=== PATIENT | female | born 1950 | race Caucasian/White ===

== ENCOUNTER 2016-09-30 10:42 | Emergency (ER) | payer BC, MEDICARE ==
--- NOTE | 2016-09-30 10:59 | EDM.PDOC ---
ED HPI GENERAL MEDICAL PROBLEM - General Chief Complaint: Genitourinary Problem Stated Complaint: POSSIBLE UTI Time Seen by Provider: 09/30/16 10:53 - History of Present Illness INITIAL COMMENTS - FREE TEXT/NARRATIVE: HISTORY AND PHYSICAL: History of present illness: Patient is 65-year-old female history of lupus and rheumatoid arthritis who presents with concern about lower back discomfort fever frequency and discomfort with urination this pain x1 day patient does have chronic back problems and has had spinal fusion she states this is a different quality of pain. There's been no vomiting no diarrhea no other complaints Review of systems: As per history of present illness and below otherwise all systems reviewed and negative. Past medical history: As per history of present illness and as reviewed below otherwise noncontributory. Surgical history: As per history of present illness and as reviewed below otherwise noncontributory. Social history: No reported history of drug or alcohol abuse. Family history: As per history of present illness and as reviewed below otherwise noncontributory. Physical exam: HEENT: Atraumatic, normocephalic, pupils reactive, negative for conjunctival pallor or scleral icterus, mucous membranes moist, throat clear, neck supple, nontender, trachea midline. Lungs: Clear to auscultation, breath sounds equal bilaterally, chest nontender. Heart: S1S2, regular, negative for clicks, rubs, or JVD. Abdomen: Soft, nondistended, nontender. Negative for masses or hepatosplenomegaly. Mild bilateral costovertebral tenderness. Pelvis: Stable nontender. Genitourinary: Deferred. Rectal: Deferred. Extremities: Atraumatic, negative for cords or calf pain. Neurovascular unremarkable. Neuro: Awake, alert, oriented. Cranial nerves II through XII unremarkable. Cerebellum unremarkable. Motor and sensory unremarkable throughout. Exam nonfocal. Diagnostics: CBC CMP blood culture x2 lactic acid UA urine culture and sensitivity Therapeutics: Saline 1 L bolus Impression: #1 UTI #2 history of rheumatoid arthritis #3 history of lupus #4 history of fever Definitive disposition and diagnosis as appropriate pending reevaluation and review of above. Bilateral Lower Back Pain Score (Numeric/FACES): 6 - Related Data Allergies Allergy/AdvReac Type Severity Reaction Status Date / Time gluten Allergy Swelling Verified 09/30/16 10:47 Penicillins Allergy Rash Verified 09/30/16 10:47 Seasonal Allergy Sneezing Uncoded 09/30/16 10:47 Home Meds: Home Meds Calcium Carbonate/Vitamin D3 [Calcium 250+D] 09/03/13 [History] Fish Oil/[place]-3 Fatty Acids [Fish Oil] 1 each PO 09/03/13 [History] Metoprolol Succinate [Toprol XL] 25 mg PO ACBRK 09/03/13 [History] Multivitamin [Multi Vitamin Daily] 09/03/13 [History] Potassium Chloride [Klor-Con M20] 20 meq PO DAILY 09/03/13 [History] Simvastatin [Zocor] 40 mg PO BEDTIME 09/03/13 [History] Vit B Cmplx 3/Fa/Vit C/Biotin [Tameka-Alonso Rx Tablet] 1 each PO 09/03/13 [History] Vit D3 & K/Berberine HCl/Hops [Ostera] 50,000 tab PO ASDIRECTED 09/03/13 [ History] Aspirin [Heather Chewable] 81 mg PO 09/05/13 [History] Celecoxib [CeleBREX] 200 mg PO BID 09/05/13 [History] Fexofenadine [Anni] 180 mg PO DAILY 09/05/13 [History] HCTZ/Triamterene [Dyazide 25-37.5 MG] 1 cap PO DAILY 09/05/13 [History] traMADol [Ultram] 100 mg PO Q6H PRN 09/05/13 [History] Social & Family History - Alcohol Use Days Per Week of Alcohol Use: 0 Number of Drinks Per Day: 0 Total Drinks Per Week: 0 - Recreational Drug Use Recreational Drug Use: No Drug Use in Last 12 Months: No ED ROS GENERAL - Review of Systems Review Of Systems: ROS reveals no pertinent complaints other than HPI. ED EXAM, GENERAL - Physical Exam Exam: See Below (See dictation) Course - Vital Signs Last Recorded V/S: Last Vital Signs Temp 36.1 C 09/30/16 10:50 Pulse 111 H 09/30/16 10:50 Resp 16 09/30/16 10:50 BP 146/90 H 09/30/16 10:50 Pulse Ox 98 09/30/16 10:50 - Orders/Labs/Meds Orders: Active Orders 24 hr Category Date Time Status CULTURE BLOOD [BC] Stat Lab 09/30/16 11:06 Received CULTURE BLOOD [BC] Stat Lab 09/30/16 11:19 Received CULTURE URINE [RM] Stat Lab 09/30/16 10:47 Received Blood Culture x2 Reflex Set [OM.PC] Stat Oth 09/30/16 11:00 Ordered Labs: Laboratory Tests 09/30/16 09/30/16 09/30/16 Range/Units 10:47 11:06 11:06 WBC 15.06 H (4.0-11.0) K/uL RBC 4.64 (4.30-5.90) M/uL Hgb 14.0 (12.0-16.0) g/dL Hct 42.3 (36.0-46.0) % MCV 91.2 (80.0-98.0) fL MCH 30.2 (27.0-32.0) pg MCHC 33.1 (31.0-37.0) g/dL RDW Std Deviation 45.0 (28.0-62.0) fl RDW Coeff of Raven 14 (11.0-15.0) % Plt Count 278 (150-400) K/uL MPV 10.10 (7.40-12.00) fL Neut % (Auto) 71.1 (48.0-80.0) % Lymph % (Auto) 14.3 L (16.0-40.0) % Baker % (Auto) 12.0 (0.0-15.0) % Eos % (Auto) 2.1 (0.0-7.0) % Baso % (Auto) 0.5 (0.0-1.5) % Neut # (Auto) 10.7 H (1.4-5.7) K/uL Lymph # (Auto) 2.2 (0.6-2.4) K/uL Baker # (Auto) 1.8 H (0.0-0.8) K/uL Eos # (Auto) 0.3 (0.0-0.7) K/uL Baso # (Auto) 0.1 (0.0-0.1) K/uL Nucleated RBC % 0.0 /100WBC Nucleated RBCs # 0 K/uL Lactate 1.7 (0.20-2.00) mmol/L Sodium (136-146) mmol/L Potassium (3.5-5.1) mmol/L Chloride (98-110) mmol/L Carbon Dioxide (21-31) mmol/L BUN (6.0-23.0) mg/dL Creatinine (0.6-1.5) mg/dL Est Cr Clr Drug Dosing mL/min Estimated GFR (MDRD) ml/min Glucose (60-110) mg/dL Calcium (8.8-10.8) mg/dL Total Bilirubin (0.1-1.5) mg/dL AST (5-40) IU/L ALT (8-54) IU/L Alkaline Phosphatase (40-150) Total Protein (6.0-8.0) g/dL Albumin (3.4-4.8) g/dL Globulin (2.0-3.5) g/dL Albumin/Globulin Ratio (1.3-2.8) Urine Color YELLOW Urine Appearance CLEAR Urine pH 5.5 (5.0-8.0) Ur Specific [place] 1.025 (1.001-1.035) Urine Protein NEGATIVE (NEGATIVE) mg/dL Urine Glucose (UA) NEGATIVE (NEGATIVE) mg/dL Urine Ketones NEGATIVE (NEGATIVE) mg/dL Urine Occult Blood SMALL H (NEGATIVE) Urine Nitrite NEGATIVE (NEGATIVE) Urine Bilirubin NEGATIVE (NEGATIVE) Urine Urobilinogen 0.2 (<2.0) EU/dL Ur Leukocyte Esterase TRACE (NEGATIVE) Urine RBC 0-2 (0-2/HPF) Urine WBC 4-6 (0-5/HPF) Ur Epithelial Cells FEW (NONE-FEW) Urine Bacteria FEW (NEGATIVE) 09/30/16 Range/Units 11:06 WBC (4.0-11.0) K/uL RBC (4.30-5.90) M/uL Hgb (12.0-16.0) g/dL Hct (36.0-46.0) % MCV (80.0-98.0) fL MCH (27.0-32.0) pg MCHC (31.0-37.0) g/dL RDW Std Deviation (28.0-62.0) fl RDW Coeff of Raven (11.0-15.0) % Plt Count (150-400) K/uL MPV (7.40-12.00) fL Neut % (Auto) (48.0-80.0) % Lymph % (Auto) (16.0-40.0) % Baker % (Auto) (0.0-15.0) % Eos % (Auto) (0.0-7.0) % Baso % (Auto) (0.0-1.5) % Neut # (Auto) (1.4-5.7) K/uL Lymph # (Auto) (0.6-2.4) K/uL Baker # (Auto) (0.0-0.8) K/uL Eos # (Auto) (0.0-0.7) K/uL Baso # (Auto) (0.0-0.1) K/uL Nucleated RBC % /100WBC Nucleated RBCs # K/uL Lactate (0.20-2.00) mmol/L Sodium 139 (136-146) mmol/L Potassium 2.9 L (3.5-5.1) mmol/L Chloride 97 L (98-110) mmol/L Carbon Dioxide 28 (21-31) mmol/L BUN 23 (6.0-23.0) mg/dL Creatinine 0.9 (0.6-1.5) mg/dL Est Cr Clr Drug Dosing 64.85 mL/min Estimated GFR (MDRD) > 60.0 ml/min Glucose 118 H (60-110) mg/dL Calcium 10.9 H (8.8-10.8) mg/dL Total Bilirubin 0.7 (0.1-1.5) mg/dL AST 21 (5-40) IU/L ALT 18 (8-54) IU/L Alkaline Phosphatase 62 (40-150) Total Protein 7.6 (6.0-8.0) g/dL Albumin 4.3 (3.4-4.8) g/dL Globulin 3.3 (2.0-3.5) g/dL Albumin/Globulin Ratio 1.3 (1.3-2.8) Urine Color Urine Appearance Urine pH (5.0-8.0) Ur Specific [place] (1.001-1.035) Urine Protein (NEGATIVE) mg/dL Urine Glucose (UA) (NEGATIVE) mg/dL Urine Ketones (NEGATIVE) mg/dL Urine Occult Blood (NEGATIVE) Urine Nitrite (NEGATIVE) Urine Bilirubin (NEGATIVE) Urine Urobilinogen (<2.0) EU/dL Ur Leukocyte Esterase (NEGATIVE) Urine RBC (0-2/HPF) Urine WBC (0-5/HPF) Ur Epithelial Cells (NONE-FEW) Urine Bacteria (NEGATIVE) Meds: Medications Discontinued Medications Generic Name Dose Route Start Last Admin Trade Name Genesis PRN Reason Stop Dose Admin Sodium Chloride 1,000 mls @ 999 mls/hr 09/30/16 11:00 09/30/16 11:27 Normal Saline IV 09/30/16 12:00 999 mls/hr STAT ONE Administration Departure - Departure Time of Disposition: 13:04 Disposition: Home, Self-Care 01 Condition: good Clinical Impression: UTI, Urinary tract infectious disease, Hypokalemia, History of systemic lupus erythematosus (SLE), History of rheumatoid arthritis - Discharge Information Forms: ED Department Discharge Additional Instructions: The following information is given to patients seen in the emergency department who are being discharged to home. This information is to outline your options for follow-up care. We provide all patients seen in our emergency department with a follow-up referral. The need for follow-up, as well as the timing and circumstances, are variable depending upon the specifics of your emergency department visit. If you don't have a primary care physician on staff, we will provide you with a referral. We always advise you to contact your personal physician following an emergency department visit to inform them of the circumstance of the visit and for follow-up with them and/or the need for any referrals to a consulting specialist. The emergency department will also refer you to a specialist when appropriate. This referral assures that you have the opportunity for followup care with a specialist. All of these measure are taken in an effort to provide you with optimal care, which includes your followup. Under all circumstances we always encourage you to contact your private physician who remains a resource for coordinating your care. When calling for followup care, please make the office aware that this follow-up is from your recent emergency room visit. If for any reason you are refused follow-up, please contact the [facility] emergency department at and asked to speak to the emergency department charge nurse. Bactrim as prescribed K-Dur as prescribed continue current medications followup primary medical doctor 24-48 hours return as needed as discussed - My Orders Last 24 Hours: My Active Orders 09/30/16 10:47 CULTURE URINE [RM] Stat 09/30/16 11:00 Blood Culture x2 Reflex Set [OM.PC] Stat 09/30/16 11:06 CULTURE BLOOD [BC] Stat 09/30/16 11:19 CULTURE BLOOD [BC] Stat - Assessment/Plan Last 24 Hours: My Active Orders 09/30/16 10:47 CULTURE URINE [RM] Stat 09/30/16 11:00 Blood Culture x2 Reflex Set [PC] Stat 09/30/16 11:06 CULTURE BLOOD [BC] Stat 09/30/16 11:19 CULTURE BLOOD [BC] Stat
[2016-09-30] MEDS ORDERED: Sodium Chloride 0.9% 1,000 ML IV ONE (11:00)
[2016-09-30 11:53] LABS: CHLORIDE,CL 97 mmol/L (98-110); SODIUM,NA 139 mmol/L (136-146)
[2016-09-30 15:42] VITALS: BP 138/63
== END 2016-09-30 13:20 | disposition home or self-care (01) ==
LOC: MW.ED 10:42
DX: N39.0 Urinary tract infection, site not specified (principal); E87.6 Hypokalemia; Z87.39 Personal history of other diseases of the musculoskeletal system and connective tissue; Z79.82 Long term (current) use of aspirin; Z79.899 Other long term (current) drug therapy; Z88.0 Allergy status to penicillin; Z91.018 Allergy to other foods; Z91.048 Other nonmedicinal substance allergy status
CPT/HCPCS: 36415; 80053; 81001; 83605; 85025; 87040; 87086; 96360; 99284; J7040; 99283

== ENCOUNTER 2017-04-01 18:37 | Emergency (ER) | payer BC, MEDICARE ==
[2017-04-01] MEDS ORDERED: Sodium Chloride 0.9% 10 ML Syringe FLUSH PRN (19:08)
[2017-04-01] MEDS ORDERED: Sodium Chloride 0.9% 2.5 ML Syringe FLUSH PRN (19:08)
[2017-04-01] MEDS ORDERED: Sodium Chloride 0.9% 1,000 ML IV ONE (19:09)
[2017-04-01] MEDS ORDERED: Ketorolac 30 MG/ML SDV IVPUSH ONE (19:09)
--- NOTE | 2017-04-01 19:14 | EDM.PDOC ---
ED HPI GENERAL MEDICAL PROBLEM - General Chief Complaint: Back Pain or Injury Stated Complaint: PATIENT FELL AT HOME AND HAS BACK PAIN Time Seen by Provider: 04/01/17 19:11 Source of Information: Reports: Patient History Limitations: Reports: No Limitations - History of Present Illness INITIAL COMMENTS - FREE TEXT/NARRATIVE: HISTORY AND PHYSICAL: []66-year-old female presenting after having fallen yesterday History of Present Illness: []Patient reached over to jiggle the handle of the toilet slipped on the floor straddling the toilet hitting her back to the wall Patient has previous compression fractures and fusion to her thoracic and low back She states that she landed straight on her Buttocks She has history of RA Review of Systems: As per history of present illness and below otherwise all systems reviewed and negative. Past medical history: As per history of present illness and as reviewed below otherwise noncontributory. Surgical history: As per history of present illness and as reviewed below otherwise noncontributory. Social history: No reported history of drug or alcohol abuse. Family history: As per history of present illness and as reviewed below otherwise noncontributory. Physical exam: Alert and oriented female who is moving quite stiffly/ HEENT: Atraumatic, normocehpalic, pupils reactive, negative for conjunctival pallor or scleral icterus, mucous membranes moist, throat clear, neck supple, nontender, trachea midline. Lungs: Clear to auscultation, breath sounds equal bilaterally, chest non tender. Heart: S1S2, regular, negative for clicks, rubs, or JVD. Abdomen: Soft, nondistended, nontender. Negative for masses or hepatossplenmegaly. Positive for right costovertebral tenderness. Pelvis: Stable nontender. Tender in the sacral area Genitourinary: Deferred. Rectal: Deferred Extremities: Mild edema and ecchymosis to left lateral wrist, negative for cords or calf pain. Neurovascular unremarkable. Neuro: Awake, alert, oriented. Cranial nerves II through XII unremarkable. Cerebellum unremarkable. Motor and sensory unremarkable throughout. Exam nonfocal. Patient is less stiff after her Toradol Have discussed the results of all her testing with her and her and they both voiced understanding Diagnostics: [Back x-rays wrist x-ray] Therapeutics: [Toradol IV fluid] Impression: [T12 compression fracture] Plan: [Discharge to home Miacalcin nasal spray [place] Follow-up with your primary care provider in 3 days ] Definitive disposition and diagnosis as appropriate pending reevaluation and review of above. Onset: Sudden Duration: Day(s): (1) Location: Reports: Back, Pelvis, Upper Extremity, Left Back Pain Score (Numeric/FACES): 4 - Related Data Allergies Allergy/AdvReac Type Severity Reaction Status Date / Time gluten Allergy Swelling Verified 04/01/17 19:02 Penicillins Allergy Rash Verified 04/01/17 19:02 Seasonal Allergy Sneezing Uncoded 04/01/17 19:02 Home Meds: Home Meds Calcium Carbonate/Vitamin D3 [Calcium 250+D] 09/03/13 [History] Fish Oil/[place]-3 Fatty Acids [Fish Oil] 1 each PO 09/03/13 [History] Metoprolol Succinate [Toprol XL] 25 mg PO ACBRK 09/03/13 [History] Multivitamin [Multi Vitamin Daily] 09/03/13 [History] Potassium Chloride [Klor-Con M20] 20 meq PO DAILY 09/03/13 [History] Simvastatin [Zocor] 40 mg PO BEDTIME 09/03/13 [History] Vit B Cmplx 3/Fa/Vit C/Biotin [Tameka-Alonso Rx Tablet] 1 each PO 09/03/13 [History] Vit D3 & K/[place]ber[place] HCl/Hops [Ostera] 50,000 tab PO ASDIRECTED 09/03/13 [ History] Aspirin [Heather Chewable] 81 mg PO 09/05/13 [History] Celecoxib [CeleBREX] 200 mg PO BID 09/05/13 [History] Fexofenadine [Anni] 180 mg PO DAILY 09/05/13 [History] HCTZ/Triamterene [Dyazide 25-37.5 MG] 1 cap PO DAILY 09/05/13 [History] traMADol [Ultram] 100 mg PO Q6H PRN 09/05/13 [History] Calcitonin ([place]) [Miacalcin Nasal [place]] 1 ml VISHNU DAILY #1 bottle 04/01/17 [ Rx] Past Medical History Cardiovascular History: Reports: Hypertension Gastrointestinal History: Reports: Celiac Disease Genitourinary History: Reports: UTI, Recurrent Musculoskeletal History: Reports: RA Endocrine/Metabolic History: Reports: Hypothyroidism, Other (See Below) Other Endocrine/Metabolic History: Lupus - Infectious Disease History Infectious Disease History: Reports: Chicken Pox, Shingles - Past Surgical History Cardiovascular Surgical History: Reports: None Female Surgical History: Reports: Hysterectomy Neurological Surgical History: Reports: Spinal Fusion, Other (See Below) Other Neurological Surgeries/Procedures: lumbar fusion Musculoskeletal Surgical History: Reports: Other (See Below) Other Musculoskeletal Surgeries/Procedures:: right ankle fusion Social & Family History - Family History Family Medical History: Noncontributory - Tobacco Use Smoking Status *Q: Never Smoker Second Hand Smoke Exposure: No - Caffeine Use Caffeine Use: Reports: Soda - Alcohol Use Days Per Week of Alcohol Use: 0 Number of Drinks Per Day: 0 Total Drinks Per Week: 0 - Recreational Drug Use Recreational Drug Use: No Drug Use in Last 12 Months: No ED ROS GENERAL - Review of Systems Review Of Systems: ROS reveals no pertinent complaints other than HPI. ED EXAM,LOWER BACK PAIN/INJURY - Physical Exam Exam: See Below (see dictation) Course - Vital Signs Last Recorded V/S: Last Vital Signs Temp 36.4 C 04/01/17 19:02 Pulse 98 04/01/17 19:02 Resp 18 04/01/17 19:02 BP 126/84 04/01/17 19:02 Pulse Ox 94 L 04/01/17 19:02 - Orders/Labs/Meds Orders: Active Orders 24 hr Category Date Time Status Lumbar Spine 2 or 3V [CR] Stat Exams 04/01/17 19:08 Taken Pelvis 1V or 2V [CR] Stat Exams 04/01/17 19:09 Taken Sacrum Coccyx Min 2V [CR] Stat Exams 04/01/17 19:07 Taken Thoracic Spine 3V [CR] Stat Exams 04/01/17 19:08 Taken Wrist 2V Lt [CR] Stat Exams 04/01/17 19:13 Taken Sodium Chloride 0.9% [Saline Flush] Med 04/01/17 19:08 Active 10 ml FLUSH ASDIRECTED PRN Sodium Chloride 0.9% [Saline Flush] Med 04/01/17 19:08 Active 2.5 ml FLUSH ASDIRECTED PRN Saline Lock Insert [OM.PC] Stat Oth 04/01/17 19:07 Ordered Medication Orders Sodium Chloride (Saline Flush) 10 ml FLUSH ASDIRECTED PRN PRN Reason: Keep Vein Open Last Admin: 12/03/17 19:51 Dose: 10 ml Sodium Chloride (Saline Flush) 2.5 ml FLUSH ASDIRECTED PRN PRN Reason: Keep Vein Open Last Admin: 04/01/17 19:51 Dose: 2.5 ml Labs: Laboratory Tests 04/01/17 04/01/17 04/01/17 Range/Units 19:44 19:44 19:44 WBC 11.31 H (4.0-11.0) K/uL RBC 4.54 (4.30-5.90) M/uL Hgb 13.7 (12.0-16.0) g/dL Hct 41.7 (36.0-46.0) % MCV 91.9 (80.0-98.0) fL MCH 30.2 (27.0-32.0) pg MCHC 32.9 (31.0-37.0) g/dL RDW Std Deviation 44.1 (28.0-62.0) fl RDW Coeff of [place] 13 (11.0-15.0) % Plt Count 255 (150-400) K/uL MPV 9.70 (7.40-12.00) fL Neut % (Auto) 86.2 H (48.0-80.0) % Lymph % (Auto) 6.1 L (16.0-40.0) % [place] % (Auto) 6.2 (0.0-15.0) % Eos % (Auto) 0.9 (0.0-7.0) % Baso % (Auto) 0.6 (0.0-1.5) % Neut # (Auto) 9.8 H (1.4-5.7) K/uL Lymph # (Auto) 0.7 (0.6-2.4) K/uL [place] # (Auto) 0.7 (0.0-0.8) K/uL Eos # (Auto) 0.1 (0.0-0.7) K/uL Baso # (Auto) 0.1 (0.0-0.1) K/uL Nucleated RBC % 0.0 /100WBC Nucleated RBCs # 0 K/uL INR 1.08 (0.86-1.11) Sodium 137 (136-146) mmol/L Potassium 3.6 (3.5-5.1) mmol/L Chloride 100 (98-110) mmol/L Carbon Dioxide 27 (21-31) mmol/L BUN 14 (6.0-23.0) mg/dL Creatinine 1.0 (0.6-1.5) mg/dL Est Cr Clr Drug Dosing 56.58 mL/min Estimated GFR (MDRD) 55.6 ml/min Glucose 101 (60-110) mg/dL Calcium 9.4 (8.8-10.8) mg/dL Total Bilirubin 0.3 (0.1-1.5) mg/dL AST 24 (5-40) IU/L ALT 27 (8-54) IU/L Alkaline Phosphatase 54 (40-150) Total Protein 7.2 (6.0-8.0) g/dL Albumin 4.1 (3.4-4.8) g/dL Globulin 3.1 (2.0-3.5) g/dL Albumin/Globulin Ratio 1.3 (1.3-2.8) Meds: Medications Generic Name Dose Route Start Last Admin Trade Name Freq PRN Reason Stop Dose Admin Sodium Chloride 10 ml 04/01/17 19:08 04/01/17 19:51 Saline Flush FLUSH 10 ml ASDIRECTED PRN Administration Keep Vein Open Sodium Chloride 2.5 ml 04/01/17 19:08 04/01/17 19:51 Saline Flush FLUSH 2.5 ml ASDIRECTED PRN Administration Keep Vein Open Discontinued Medications Generic Name Dose Route Start Last Admin Trade Name Freq PRN Reason Stop Dose Admin Sodium Chloride 1,000 mls @ 999 mls/hr 04/01/17 19:09 04/01/17 19:50 Normal Saline IV 04/01/17 20:09 999 mls/hr STAT ONE Administration Ketorolac Tromethamine 30 mg 04/01/17 19:09 04/01/17 19:51 Toradol IVPUSH 04/01/17 19:10 30 mg ONETIME ONE Administration Departure - Departure Time of Disposition: 21:36 Disposition: Home, Self-Care 01 Condition: Good Clinical Impression: Compression fracture of T12 vertebra - Discharge Information Prescriptions: Calcitonin ([place]) [Miacalcin Nasal [place]] 1 ml VISHNU DAILY #1 bottle Instructions: Back Pain, Adult, Noac-ea-Caor, Pain Medicine Instructions, Easy- to-Read Referrals: PCP,None [Primary Care Provider] - Forms: ED Department Discharge Additional Instructions: The following information is given to patients seen in the emergency department who are being discharged to home. This information is to outline your options for follow-up care. We provide all patients seen in our emergency department with a follow-up referral. The need for follow-up, as well as the timing and circumstances, are variable depending upon the specifics of your emergency department visit. If you don't have a primary care physician on staff, we will provide you with a referral. We always advise you to contact your personal physician following an emergency department visit to inform them of the circumstance of the visit and for follow-up with them and/or the need for any referrals to a consulting specialist. The emergency department will also refer you to a specialist when appropriate. This referral assures that you have the opportunity for followup care with a specialist. All of these measure are taken in an effort to provide you with optimal care, which includes your followup. Under all circumstances we always encourage you to contact your private physician who remains a resource for coordinating your care. When calling for followup care, please make the office aware that this follow-up is from your recent emergency room visit. If for any reason you are refused follow-up, please contact the [facility] emergency department at and asked to speak to the emergency department charge nurse. If then found to have a compression fracture of your T12 vertebrae Prescription and has been sent to [facility] Prescription for hydrocodone/ APAP [facility] - My Orders Last 24 Hours: My Active Orders 04/01/17 19:07 Sacrum Coccyx Min 2V [CR] Stat Saline Lock Insert [OM.PC] Stat 04/01/17 19:08 Lumbar Spine 2 or 3V [CR] Stat Thoracic Spine 3V [CR] Stat Sodium Chloride 0.9% [Saline Flush] 10 ml FLUSH ASDIRECTED PRN Sodium Chloride 0.9% [Saline Flush] 2.5 ml FLUSH ASDIRECTED PRN 04/01/17 19:09 Pelvis 1V or 2V [CR] Stat 04/01/17 19:13 Wrist 2V Lt [CR] Stat - Assessment/Plan Last 24 Hours: My Active Orders 04/01/17 19:07 Sacrum Coccyx Min 2V [CR] Stat Saline Lock Insert [OM.PC] Stat 04/01/17 19:08 Lumbar Spine 2 or 3V [CR] Stat Thoracic Spine 3V [CR] Stat Sodium Chloride 0.9% [Saline Flush] 10 ml FLUSH ASDIRECTED PRN Sodium Chloride 0.9% [Saline Flush] 2.5 ml FLUSH ASDIRECTED PRN 04/01/17 19:09 Pelvis 1V or 2V [CR] Stat 04/01/17 19:13 Wrist 2V Lt [CR] Stat
[2017-04-01 21:59] VITALS: BP 123/62
--- NOTE | 2017-04-02 16:11 | CR ---
EXAM DATE: 04/01/17 PATIENT'S AGE: 66 Patient: DAYO OLIVAS Facility: [place], [place] Site . Site : 1950 Study: XRay Pelvis [id number]/3/2017 8:37:13 PM Ordering Physician: Doctor Paez Final Report: INDICATION: Fall. Pain. TECHNIQUE: Single AP view of the pelvis. COMPARISON: Left hip from December 27, 2016. IMPRESSION: No fracture is identified on this single view study. Low-grade degenerative changes of the sacroiliac joints, hip joints, and pubic symphysis. Partial visualization of postsurgical changes in the spine. Dictated by Froylan Valle MD @ 04/01/2017 9:13:50 PM Dictated by: Froylan Valle MD @ 04/01/2017 21:13:57 (Electronic Signature) Report Signed by Proxy. ISACC
--- NOTE | 2017-04-02 16:12 | CR ---
EXAM DATE: 04/01/17 PATIENT'S AGE: 66 Patient: DAYO OLIVAS Facility: [place], [place] Site . Site : 1950 Study: XRay Extremity Left Wrist-04/01/2017 8:37:34 PM Ordering Physician: Doctor Paez Final Report: INDICATION: Fell. Pain. Technique: Two views left wrist. Findings: Moderate size well corticated ossific density along the distal aspect of the ulnar styloid is likely an old ununited fracture fragment. Moderate arthritic changes involving the left wrist and to a lesser extent visualized left hand. No definite evidence of acute fracture or dislocation in left wrist. Mild soft tissue swelling left wrist. Moderate osteopenia. Remainder negative. Dictated by Josh Perla MD @ Apr 01 2017 9:13PM (Electronic Signature) Report Signed by Proxy. ISACC
--- NOTE | 2017-04-02 16:13 | CR ---
EXAM DATE: 04/01/17 PATIENT'S AGE: 66 Patient: DAYO OLIVAS Facility: [place], [place] Site . Site : 1950 Study: XRay Spine Sacrum/Coccyx [id number]/3/2017 8:44:50 PM Ordering Physician: Doctor Paez Final Report: INDICATION: Fall. Pain. TECHNIQUE: Two AP views of the pelvis. COMPARISON: None. IMPRESSION: No appreciable fracture of the pelvis or proximal femurs on these 2 frontal views. No lateral view on this study. Degenerative changes are seen in the sacroiliac joints, hip joints and pubic symphysis. Dictated by Froylan Valle MD @ 04/01/2017 9:15:23 PM Dictated by: Froylan Valle MD @ 04/01/2017 21:15:30 (Electronic Signature) Report Signed by Proxy. ISACC
--- NOTE | 2017-04-02 16:14 | CR ---
EXAM DATE: 04/01/17 PATIENT'S AGE: 66 Patient: DAYO OLIVAS Facility: [place], [place] Site . Site : 1950 Study: XRay Spine Lumbar [id number]/3/2017 8:45:10 PM Ordering Physician: Doctor Paez Final Report: INDICATION: Fall. Pain. TECHNIQUE: Three views of the lumbar spine. COMPARISON: Thoracic spine series from December 27, 2016. IMPRESSION: There is mild levoscoliosis. Postsurgical changes are seen at the L3 and L4 levels from prior posterior decompression and posterior hardware fusion. No acute hardware complication is seen. There is low-grade anterolisthesis of L4 on L5, measuring 1.2 cm. There is moderate disc height loss at L2-3, with advanced disc height loss at L4-5. Facet arthrosis is noted at the non operative levels. There is no fracture in the lumbar spine. However, there is an acute appearing mild anterior wedge type compression fracture of T12, with approximately 20 percent loss of anterior vertebral body height. On the lateral view of the lumbosacral junction, no appreciable sacral fracture. Dictated by Froylan Valle MD @ 04/01/2017 9:19:11 PM Dictated by: Froylan Valle MD @ 04/01/2017 21:19:17 (Electronic Signature) Report Signed by Proxy. ISACC
--- NOTE | 2017-04-02 16:15 | CR ---
EXAM DATE: 04/01/17 PATIENT'S AGE: 66 Patient: DAYO OLIVAS Facility: [place], [place] Site . Site : 1950 Study: XRay Spine Thoracic [id number]/3/2017 8:50:18 PM Ordering Physician: Doctor Paez Final Report: INDICATION: Fall. Pain. TECHNIQUE: Three views of the thoracic spine. COMPARISON: December 27, 2016. IMPRESSION: Suboptimal lateral views due to underpenetration. There is an acute appearing mild anterior wedge type compression fracture of T12 , with approximately 20 percent loss of anterior vertebral body height. Stable minimal endplate compression deformities at T5 and T8. No spondylolisthesis involving the thoracic spine. Mild multilevel disc degeneration. Dictated by Froylan Valle MD @ 04/01/2017 9:22:25 PM Dictated by: Froylan Valle MD @ 04/01/2017 21:22:30 (Electronic Signature) Report Signed by Proxy. ISACC
== END 2017-04-01 21:54 | disposition home or self-care (01) ==
LOC: MW.ED 18:37
DX: S22.089A Unspecified fracture of T11-T12 vertebra, initial encounter for closed fracture (principal); I10 Essential (primary) hypertension; Z88.0 Allergy status to penicillin; Z88.8 Allergy status to other drugs, medicaments and biological substances; Z79.899 Other long term (current) drug therapy; W01.0XXA Fall on same level from slipping, tripping and stumbling without subsequent striking against object, initial encounter
CPT/HCPCS: 72072; 72100; 72170; 72220; 73100; 80053; 85025; 85610; 96361; 96374; 99283; J1885; J7040; 99284

== ENCOUNTER 2023-06-17 23:56 | Emergency (ER) | payer BC, MEDICARE ==
[2023-06-18] MEDS ORDERED: Iopamidol 755 MG/ML 500 ML Multipack Bottle IVPUSH ONE (00:17)
[2023-06-18 00:41] LABS: BASOPHILS ABSOLUTE AUTO 0.02 K/uL (0.00-0.20); BASOPHILS PERCENT AUTO 0.3 % (0.0-1.0); EOSINOPHILS ABSOLUTE AUTO 0.01 K/uL (0.00-0.45); EOSINOPHILS PERCENT AUTO 0.1 % (0.0-6.0); HEMATOCRIT 33.7 % (37.0-47.0); HEMOGLOBIN 10.2 g/dL (12.0-16.0); IMMATURE GRAN ABSOLUTE AUTO 0.04 K/uL (0.00-0.05); IMMATURE GRAN PERCENT AUTO 0.6 % (0.0-0.4); LYMPHOCYTES ABSOLUTE AUTO 0.47 K/uL (1.00-4.80); MEAN CORPUSCULAR HEMOGLOBIN 26.5 pg (28.0-32.0); MEAN CORPUSCULAR HGB CONC 30.3 g/dL (32.0-36.0); MEAN CORPUSCULAR VOLUME 87.5 fL (83.0-99.0); MEAN PLATELET VOLUME 10.7 fL (9.4-12.3); MONOCYTES ABSOLUTE AUTO 0.69 K/uL (0.00-0.80); MONOCYTES PERCENT AUTO 10.3 % (0.0-8.0); NEUTROPHILS ABSOLUTE AUTO 5.49 K/uL (1.80-7.70); NEUTROPHILS PERCENT AUTO 81.7 % (41.0-71.0); NRBC ABSOLUTE 0.08 K/uL (0.00-0.02); NRBC PERCENT 1.2 /100WBC (0.0-0.2); PLATELET COUNT,PLT 281 K/uL (150-400); RED BLOOD CELL COUNT 3.85 M/uL (4.10-5.30); WHITE BLOOD CELL COUNT,WBC 6.72 K/uL (3.9-11.3)
[2023-06-18] MEDS: Morphine 4 MG/ML Syringe IVPUSH ONE (00:56)
[2023-06-18] MEDS: Pantoprazole 80 MG in Sodium Chloride 0.9% 10 ML IVPUSH ONE (00:57)
[2023-06-18] MEDS: Sodium Chloride 0.9% 10 ML Syringe FLUSH PRN (00:57)
[2023-06-18] MEDS: Sodium Chloride 0.9% 2.5 ML Syringe FLUSH PRN (00:57)
[2023-06-18 01:07] LABS: LACTIC ACID 11.2 mmol/L (0.4-2.0)
[2023-06-18 01:13] LABS: ALBUMIN 2.8 g/dL (3.4-5.0); BILIRUBIN TOTAL 1.4 mg/dL (0.2-1.0); CALCIUM 7.9 mg/dL (8.5-10.1); CARBON DIOXIDE,CO2 22.8 mmol/L (21.0-32.0); EST CRCL DRUG DOSING (CG) 16.26 mL/min; POTASSIUM,K 3.2 mmol/L (3.5-5.1); PROTEIN TOTAL,TP 6.1 g/dL (6.4-8.2)
[2023-06-18 01:20] LABS: A/G RATIO 0.9 (0.9-1.6)
[2023-06-18 01:34] LABS: INR 2.54 (0.86-1.11)
[2023-06-18] MEDS: Sodium Chloride 0.9% 1,000 ML IV STA ×2 (02:04→04:49)
[2023-06-18 02:50] LABS: ACETAMINOPHEN 7.7 ug/mL; SALICYLATE 3.5 mg/dL (0.0-20.0)
[2023-06-18 03:04] LABS: BASE EXCESS VENOUS -0.5 (-2.0-3.0); BICARBONATE,VENOUS 25 mEq/L (23-28); PCO2 VENOUS 45 mmHG (41-51); PH,VENOUS 7.36 (7.31-7.41)
[2023-06-18 03:05] LABS: PO2 VENOUS < 30 mmHG
[2023-06-18] MEDS: Morphine 2 MG/ML SYRINGE IVPUSH ONE (04:24)
[2023-06-18] MEDS: Metoprolol Tartrate 5 MG/5 ML SDV IVPUSH ONE ×2 (04:49→05:17)
[2023-06-18 04:51] LABS: BASOPHILS ABSOLUTE AUTO 0.02 K/uL (0.00-0.20); BASOPHILS PERCENT AUTO 0.1 % (0.0-1.0); HEMATOCRIT 40.6 % (37.0-47.0); IMMATURE GRAN ABSOLUTE AUTO 0.07 K/uL (0.00-0.05); IMMATURE GRAN PERCENT AUTO 0.5 % (0.0-0.4); LYMPHOCYTES ABSOLUTE AUTO 0.25 K/uL (1.00-4.80); LYMPHOCYTES PERCENT AUTO 1.7 % (24.0-44.0); MEAN CORPUSCULAR HEMOGLOBIN 27.7 pg (28.0-32.0); MEAN CORPUSCULAR VOLUME 86.6 fL (83.0-99.0); MEAN PLATELET VOLUME 10.5 fL (9.4-12.3); MONOCYTES ABSOLUTE AUTO 1.22 K/uL (0.00-0.80); MONOCYTES PERCENT AUTO 8.4 % (0.0-8.0); NEUTROPHILS ABSOLUTE AUTO 12.93 K/uL (1.80-7.70); NEUTROPHILS PERCENT AUTO 89.3 % (41.0-71.0); NRBC PERCENT 0.7 /100WBC (0.0-0.2); PLATELET COUNT,PLT 218 K/uL (150-400); RED BLOOD CELL COUNT 4.69 M/uL (4.10-5.30); WHITE BLOOD CELL COUNT,WBC 14.49 K/uL (3.9-11.3)
[2023-06-18] MEDS: Hydrocortisone Sodium Succinate 100 MG/2 ML SDV IVPUSH ONE (04:57)
[2023-06-18 05:18] VITALS: PULSE 142
[2023-06-18] MEDS: Piperacillin/Tazobactam 4.5 GM in Sodium Chloride 0.9% 100 ML IV ONE (05:21)
[2023-06-18 05:42] VITALS: BP 152/100
[2023-06-18] MEDS: VANCOmycin 1.25 GM/250 ML 250 ML IV ONE (05:56)
== END 2023-06-18 05:50 ==
LOC: MW.ED 23:56
DX: K92.2 Gastrointestinal hemorrhage, unspecified (principal); I48.20 Chronic atrial fibrillation, unspecified; S32.9XXA Fracture of unspecified parts of lumbosacral spine and pelvis, initial encounter for closed fracture; I10 Essential (primary) hypertension; Z79.82 Long term (current) use of aspirin; Z79.899 Other long term (current) drug therapy; Z91.018 Allergy to other foods; Z91.048 Other nonmedicinal substance allergy status; Z88.0 Allergy status to penicillin
CPT/HCPCS: 36415; 36430; 74176; 80053; 80143; 80179; 82550; 82803; 83605; 84484; 85025; 85610; 86850; 86900; 86901; 86920; 87040; 93005; 96361; 96365; 96375; 96376; 99285; C9113; J1720; J2270; J2543; J3490; J7030; P9016; 93010; 99291; 99292